=== PATIENT | female | born 1980 | race Caucasian/White ===

== ENCOUNTER 2017-09-20 09:47 | Emergency (ER) | payer OTHER ==
[~2017-09-20] VITALS: Ht 157.5 cm; Wt 95.3 kg
[~2017-09-20 09:47] MED LIST: CLON1 PO; HYDRO50 PO; LAMO100 PO; PRED20 PO
[2017-09-20 10:15] VITALS: BP 143/76; PULSE 94; RESP 16; TEMP 98.8; O2SAT 97
--- NOTE | 2017-09-20 11:00 | PD ---
HPI Chief Complaint: Cold / Flu Symptoms Time Seen by Provider: 10:38 Travel History International Travel<30 days: No Contact w/Intl Traveler<30days: No Traveled to known affect area: No History of Present Illness HPI 36-year-old female that presents to the ED for evaluation of cold like symptoms. Per patient she's had this for about 3 days. Per patient he started with a sore throat. Has been having a lot of cough and congestion. Per patient symptoms appeared to worsen today now she is coughing up green stuff. She states that she feels weak and tired which is also not been sleeping secondary to the symptoms. Denies any sick contacts alert and daughter who started with the same symptoms at the same time. History of asthma. Has inhalers at home. No smoking. No recent travel. No urinary or bowel movement issues. No chest pain or shortness of breath. No wheezing per patient. Per patient main concern is that she's had bronchitis in the past and this feels similar. Multiple allergies to different medications. PFSH Past Medical History Asthma: Yes Respiratory: Yes (asthma) Seizures: Yes ?: Not Tubal Ligation: Yes Past Surgical History Hysterectomy: Yes Neurologic Surgery: Yes (VAGAL NERVE STIMULATOR) Social History Alcohol Use: No Tobacco Use: No Substance Use: No Allergies-Medications (Allergen,Severity, Reaction): Coded Allergies: diatrizoate meglumine (Unverified Allergy, Severe, Anaphylaxis, 09/20/17) gadobenic acid (Unverified Allergy, Severe, Anaphylaxis, 09/20/17) gadodiamide (Unverified Allergy, Severe, Anaphylaxis, 09/20/17) gadoteridol (Unverified Allergy, Severe, Anaphylaxis, 09/20/17) iodixanol (Unverified Allergy, Severe, Anaphylaxis, 09/20/17) iohexol (Unverified Allergy, Severe, Anaphylaxis, 09/20/17) penicillin G (Unverified Allergy, Severe, HIVES, 09/20/17) phenytoin (Unverified Allergy, Severe, HIVES/SOB, 09/20/17) topiramate (Unverified Allergy, Severe, HIVES, 09/20/17) Reported Meds & Prescriptions Reported Meds & Active Scripts Active No Active Prescriptions or Reported Medications Review of Systems Except as stated in HPI: all other systems reviewed are Neg Physical Exam Narrative GENERAL: Well-nourished, well-developed patient in no apparent distress. SKIN: Warm and dry. HEAD: Atraumatic. Normocephalic. EYES: Pupils equal and round reactive to light and accommodation. No scleral icterus. No injection or drainage. ENT: No nasal bleeding or discharge. Mucous membranes pink and moist. TMs are clear with no sign of infection or perforation. No mastoid tenderness. Ear canals are intact bilaterally. No lymphadenopathy. Nostril mucosa is red and moist with clear mucus noted. No sinus tenderness to palpation noted. Tonsils are not enlarged or swollen. No ulvua Deviation. Tongue is midline. NECK: Trachea midline. No JVD. No meningeal signs noted CARDIOVASCULAR: Regular rate and rhythm. RESPIRATORY: No accessory muscle use. Mild wheezing heard with expiration on the lower lung fernandez. Breath sounds equal bilaterally. GASTROINTESTINAL: Abdomen soft, non-tender, nondistended. Hepatic and splenic margins not palpable. MUSCULOSKELETAL: Extremities without clubbing, cyanosis, or edema. No obvious deformities. NEUROLOGICAL: Awake and alert. No obvious cranial nerve deficits. Motor grossly within normal limits. Five out of 5 muscle strength in the arms and legs. Normal speech. PSYCHIATRIC: Appropriate mood and affect; insight and judgment normal. Data Data Last Documented VS Vital Signs Date Time Temp Pulse Resp B/P (MAP) Pulse Ox O2 Delivery O2 Flow Rate FiO2 09/20/17 10:15 98.8 94 16 143/76 (98) 97 Orders Orders Influenzae A/B Antigen (09/20/17 10:41) [facility] Medical Decision Making Medical Screen Exam Complete: Yes Emergency Medical Condition: Yes Medical Record Reviewed: Yes Interpretation(s) influenza negative Differential Diagnosis Bronchitis versus sinusitis versus URI versus influenza Narrative Course 36-year-old female that presents to the ED for evaluation of cold like symptoms. Patient was properly examined and was found to have signs and symptoms consistent with appears to be likely bronchitis. We'll check for flu. Flu negative. Patient was reassured. Patient given a prescription for azithromycin, prednisone, Tessalon Perles. Told to take OTC medicines as needed. Follow with PCP. See ED worsening symptoms. Diagnosis Primary Impression: Acute bronchitis Qualified Codes: J20.9 - Acute bronchitis, unspecified Patient Instructions: General Instructions Departure Forms: Tests/Procedures, Work Release Enter return to work date: Sep 23, 2017 Additional Instructions: Motrin and Tylenol for pain and fever. You can use [id number] antihistamine as well as well as Mucinex as needed for runny nose and congestion. Cough drops for cough as needed. Drink plenty of fluids. Follow-up with PCP. See ED for worsening symptoms. Med/Other Pt SpecificInfo: Prescription(s) given Scripts No Active Prescriptions or Reported Meds Disposition: 01 DISCHARGE HOME Condition: Stable Caleb Santamaria Sep 20, 2017 11:00
[2017-09-20] MEDS ORDERED: BENZ100 PO (11:02)
[2017-09-20] MEDS ORDERED: AZIT250T3 PO (11:02)
[2017-09-20] MEDS ORDERED: PRED20 PO (11:02)
== END 2017-09-20 11:39 | disposition home or self-care (01) ==
LOC: PHED 09:47 → PHEFT 11:39
DX: J20.9 Acute bronchitis, unspecified (principal)
CPT/HCPCS: 87804; 99283

== ENCOUNTER 2017-11-30 19:02 | Emergency (ER) | payer OTHER ==
[~2017-11-30] VITALS: Ht 157.5 cm; Wt 97.7 kg
[~2017-11-30 19:02] MED LIST changes: +AZIT250T3 PO; +BENZ100 PO; -CLON1 PO; -HYDRO50 PO; -LAMO100 PO
[2017-11-30 19:05] VITALS: BP 140/72; PULSE 82; RESP 16; TEMP 98.1; O2SAT 97
--- NOTE | 2017-11-30 19:23 | PD ---
HPI Chief Complaint: Injury Time Seen by Provider: 19:11 Travel History International Travel<30 days: No Contact w/Intl Traveler<30days: No Traveled to known affect area: No History of Present Illness HPI 36-year-old female presents with 1 month history of left knee pain. Patient states she was on a ladder a month ago when she stood on her tippy toes, she felt a pop in her leg. She denies any numbness or tingling down her legs. She reports pain around her knee joint worse on the inferior patellar area. She reports that she has been seen a chiropractor who is performed x-rays and has been giving her treatment with ultrasound. She states that this is not helping. She reports is getting worse. She reports that she does have a referral into an orthopedic doctor. She knows she will likely need an outpatient MRI. PFSH Past Medical History Asthma: Yes Respiratory: Yes Seizures: Yes ?: Not Tubal Ligation: Yes Past Surgical History Hysterectomy: Yes Neurologic Surgery: Yes (VAGAL NERVE STIMULATOR) Social History Alcohol Use: No Tobacco Use: No Substance Use: No Allergies-Medications (Allergen,Severity, Reaction): Coded Allergies: diatrizoate meglumine (Unverified Allergy, Severe, Anaphylaxis, 11/30/17) gadobenic acid (Unverified Allergy, Severe, Anaphylaxis, 11/30/17) gadodiamide (Unverified Allergy, Severe, Anaphylaxis, 11/30/17) gadoteridol (Unverified Allergy, Severe, Anaphylaxis, 11/30/17) iodixanol (Unverified Allergy, Severe, Anaphylaxis, 11/30/17) iohexol (Unverified Allergy, Severe, Anaphylaxis, 11/30/17) penicillin G (Unverified Allergy, Severe, HIVES, 11/30/17) phenytoin (Unverified Allergy, Severe, HIVES/SOB, 11/30/17) topiramate (Unverified Allergy, Severe, HIVES, 11/30/17) Reported Meds & Prescriptions Reported Meds & Active Scripts Active Lorcet (Hydrocodone-Acetaminophen) 5-325 mg Tab 1 Tab PO Q6H PRN 3 Days Arthrotec 75 (Diclofenac-Misoprostol) 75-0.2 Mg Tab 1 Tab PO BID Review of Systems Except as stated in HPI: all other systems reviewed are Neg Musculoskeletal: Positive: Limited ROM, Edema, Pain (Left knee), No: Weakness Neurologic: No: Weakness, Paresthesia, Sensory Disturbance Physical Exam Narrative GENERAL: Well-nourished, well-developed patient. SKIN: Focused skin assessment warm/dry. HEAD: Normocephalic/atraumatic. EYES: No scleral icterus. No injection or drainage. MUSCULOSKELETAL: On examination patient's left knee, there is swelling in the infrapatellar and suprapatellar region. There is no instability on anterior posterior drawer test. There is no medial or lateral instability. There is tender to touch on the medial collateral ligament distribution as well as inferior patellar ligamentous distribution. There is no redness or heat noted. It hurts worse with flexion and extension. Cap refill less than 3 seconds. Normal sensation distal toes. NEUROLOGICAL: Awake and alert. Cranial nerves II through XII intact. Motor and sensory grossly within normal limits. Five out of 5 muscle strength in all muscle groups. Normal speech. Data Data Last Documented VS Vital Signs Date Time Temp Pulse Resp B/P (MAP) Pulse Ox O2 Delivery O2 Flow Rate FiO2 11/30/17 19:05 98.1 82 16 140/72 (94) 97 MDM Medical Decision Making Medical Screen Exam Complete: Yes Emergency Medical Condition: Yes Differential Diagnosis Ligamentous injury of the left knee versus osteoarthritis versus joint effusion. Narrative Course 36-year-old female presents with left knee pain. The patient reports hearing a pop while standing on a ladder 1 month ago. She reports it has not gotten any better. She had recent x-rays by a chiropractor who informed her that there was no bony injury. I have offered her an x-ray however she has declined at this time. We will place her in a knee immobilizer. She will be given a prescription for Arthrotec. She also be given a prescription for Lorcet for 3 days. She instructed to use moist heat and elevate. She will follow-up with the orthopedic surgeon for further evaluation. She is instructed to use the knee immobilizer when she is ambulatory during the day. Diagnosis Primary Impression: Left knee pain Additional Instructions: Moist heat 2-3 times daily 20-30 minutes. Wear knee immobilizer when ambulatory. Return if feeling worse. Follow-up with the orthopedic doctor as planned. Scripts Hydrocodone-Acetaminophen (Lorcet) 5-325 mg Tab 1 TAB PO Q6H Y for PAIN for 3 Days, #12 TAB 0 Refills Prov: Domo Saucedo MD 11/30/17 Diclofenac-Misoprostol (Arthrotec 75) 75-0.2 Mg Tab 1 TAB PO BID for Pain Management, #60 TAB 0 Refills Prov: Domo Saucedo MD 11/30/17 Disposition: 01 DISCHARGE HOME Condition: Stable Domo Saucedo MD November 30, 2017 19:23
[2017-11-30] MEDS ORDERED: ARTHTAB5 PO (19:24)
[2017-11-30] MEDS ORDERED: HYDR-3576 PO (19:24)
== END 2017-11-30 19:45 | disposition home or self-care (01) ==
LOC: PHEFT 19:02
DX: M25.562 Pain in left knee (principal); J45.909 Unspecified asthma, uncomplicated; Z86.69 Personal history of other diseases of the nervous system and sense organs; Z88.0 Allergy status to penicillin; Z88.8 Allergy status to other drugs, medicaments and biological substances
CPT/HCPCS: 99283

== ENCOUNTER 2018-01-08 00:34 | Emergency (ER) | payer OTHER ==
[~2018-01-08] VITALS: Ht 157.5 cm; Wt 97.6 kg
[~2018-01-08 00:34] MED LIST changes: +ARTHTAB5 PO; -AZIT250T3 PO; -BENZ100 PO; +HYDR-3576 PO; -PRED20 PO
[2018-01-08 00:40] VITALS: BP 121/84; PULSE 86; RESP 12; TEMP 97.9; O2SAT 97
[2018-01-08] MEDS ORDERED: ALBUAER3 INH (00:59)
--- NOTE | 2018-01-08 01:11 | PD ---
HPI Chief Complaint: Edema Time Seen by Provider: 01:03 Travel History International Travel<30 days: No Contact w/Intl Traveler<30days: No Traveled to known affect area: No History of Present Illness HPI The patient is a 37-year-old female that complains of swelling to the left leg for approximately 24 hours. She also has some pain in the left leg which is minimal. She has a history of DVT to the left leg 3 years ago and was subsequently taken off of anticoagulants. She denies any pulmonary emboli. She has a history of asthma and has some slight shortness of breath and some slight chest tightness but no pleuritic type chest pain. She denies any hemoptysis or fever. Her pain is a 5/10 and dull pain. PFSH Past Medical History Asthma: Yes Respiratory: Yes Seizures: Yes ?: Not Tubal Ligation: Yes Past Surgical History Hysterectomy: Yes Neurologic Surgery: Yes (VAGAL NERVE STIMULATOR AND REMOVAL) Social History Alcohol Use: No Tobacco Use: No Substance Use: No Allergies-Medications (Allergen,Severity, Reaction): Coded Allergies: diatrizoate meglumine (Verified Allergy, Severe, Anaphylaxis, 01/08/18) gadobenic acid (Verified Allergy, Severe, Anaphylaxis, 01/08/18) gadodiamide (Verified Allergy, Severe, Anaphylaxis, 01/08/18) gadoteridol (Verified Allergy, Severe, Anaphylaxis, 01/08/18) iodixanol (Verified Allergy, Severe, Anaphylaxis, 01/08/18) iohexol (Verified Allergy, Severe, Anaphylaxis, 01/08/18) penicillin G (Verified Allergy, Severe, HIVES, 01/08/18) phenytoin (Verified Allergy, Severe, HIVES/SOB, 01/08/18) topiramate (Verified Allergy, Severe, HIVES, 01/08/18) Reported Meds & Prescriptions Reported Meds & Active Scripts Active Reported Proair Hfa 8.5 GM Inh (Albuterol Sulfate) 90 Mcg/Act Aer 1 Puff INH Q4H PRN 108 mcg/actuation Review of Systems Except as stated in HPI: all other systems reviewed are Neg Physical Exam Narrative GENERAL: The patient is alert, oriented 3 in slight apparent distress with her left leg pain. She is in no respiratory distress. Her vital signs are normal. SKIN: Focused skin assessment warm/dry. HEAD: Atraumatic. Normocephalic. EYES: Pupils equal and round. No scleral icterus. No injection or drainage. ENT: No nasal bleeding or discharge. Mucous membranes pink and moist. NECK: Trachea midline. No JVD. CARDIOVASCULAR: Regular rate and rhythm. No murmur appreciated. RESPIRATORY: No accessory muscle use. Clear to auscultation. Breath sounds equal bilaterally. GASTROINTESTINAL: Abdomen soft, non-tender, nondistended. Hepatic and splenic margins not palpable. MUSCULOSKELETAL: No obvious deformities. No clubbing. No cyanosis. No edema. There is visible swelling in the left leg and Homans sign is positive. There is some slight calf pain tenderness present only in the left leg. NEUROLOGICAL: Awake and alert. No obvious cranial nerve deficits. Motor grossly within normal limits. Normal speech. PSYCHIATRIC: Appropriate mood and affect; insight and judgment normal. Data Data Last Documented VS Vital Signs Date Time Temp Pulse Resp B/P (MAP) Pulse Ox O2 Delivery O2 Flow Rate FiO2 01/08/18 01:02 98 Room Air 01/08/18 00:40 97.9 86 12 121/84 (96) Orders Orders Complete Blood Count With Diff (01/08/18 01:07) Comprehensive Metabolic Panel (01/08/18 01:07) Prothrombin Time / Inr (Pt) (01/08/18 01:07) Act Partial Throm Time (Ptt) (01/08/18 01:07) Urinalysis - C+S If Indicated (01/08/18 01:07) Us Leg Venous Doppler (01/08/18 01:07) MDM Medical Decision Making Medical Screen Exam Complete: Yes Emergency Medical Condition: Yes Medical Record Reviewed: Yes Interpretation(s) The ultrasound is negative for DVT. Differential Diagnosis DVT, cellulitis, fasciitis, left leg pain etiology undetermined Narrative Course The patient has pain and visible swelling in the left lower extremity without any erythema or evidence of cellulitis. This still may represent early DVT and the patient is told that she may need to repeat the ultrasound in a week or 2 if not better. The patient has a pain now 7/10 and will be given prescriptions for ibuprofen and Percocet 5. Diagnosis Primary Impression: Pain and swelling of left lower leg Additional Instructions: As we discussed, follow-up with your primary care physician. If this pain/ swelling is persistent you may need to repeat this ultrasound because it may be simply too early at this time to demonstrate the clot. Do not drink alcohol or drive on the Percocet 7.5. Med/Other Pt SpecificInfo: Prescription(s) given Scripts Ibuprofen (Ibuprofen) 600 Mg Tab 600 MG PO TID, #33 TAB 0 Refills Prov: Kale Comer MD 01/08/18 Oxycodone-Acetaminophen (Percocet) 7.5-325 mg Tab 1 TAB PO Q6H Y for PAIN, #20 TAB 0 Refills Prov: Kale Comer MD 01/08/18 Disposition: 01 DISCHARGE HOME Condition: Stable Kale Comer MD Jan 08, 2018 01:11
--- NOTE | 2018-01-08 02:07 | RADRPT ---
EXAM DATE: 01/08/2018 2:04 AM EDT AGE/SEX: 37 years / Female INDICATIONS: Left leg swelling. CLINICAL DATA: This is the patient's initial encounter. Patient reports that signs and symptoms have been present for 1 day and indicates a pain score of 8/10. MEDICAL/SURGICAL HISTORY: Asthma. Cardiac dvt four years ago. Hysterectomy. Tubal ligation. COMPARISON: No prior exams available for comparison. TECHNIQUE: Venous ultrasound of both lower extremities was performed from the inguinal ligament to t he proximal calf. Real-time, color Doppler and spectral tracing, compression and augmentation techni ques were used. FINDINGS: The lower extremity veins are fully compressible and demonstrated normal venous waveform a nd augmentation response. There are no filling defects. CONCLUSION: 1. Negative exam with no evidence of deep venous thrombosis. Electronically signed by: Luis Armando Koenig MD 01/08/2018 2:06 AM EDT
[2018-01-08] MEDS ORDERED: PERC7.5T13 PO (02:26)
[2018-01-08] MEDS ORDERED: IBUP-232 PO (02:26)
[2018-01-08] MEDS ORDERED: oxyCODONE/ACETAMINOPHEN 7.5 MG/325 MG TAB PO ONE (02:30)
[2018-01-08] MEDS ORDERED: KETOROLAC TROMETHAMINE 60 MG/2 ML (IM) VIAL IVP ONE (02:30)
[2018-01-08 02:32] LABS: AUTOMATED NEUTROPHIL # 5.6 TH/MM3 (1.8-7.7); BASOPHIL # 0.1 TH/MM3 (0-0.2); BASOPHIL % 0.8 % (0.0-2.0); EOSINOPHIL # 0.2 TH/MM3 (0-0.4); EOSINOPHIL % 2.2 % (0.0-4.0); HEMATOCRIT 41.7 % (35.0-46.0); HEMOGLOBIN 13.9 GM/DL (11.6-15.3); LYMPH % 34.4 % (9.0-44.0); LYMPHOCYTE # 3.5 TH/MM3 (1.0-4.8); MEAN CELL VOLUME 89.6 FL (80.0-100.0); MEAN CORPUSCULAR HEMOGLOBIN 29.9 PG (27.0-34.0); MEAN CORPUSCULAR HGB CONC 33.4 % (32.0-36.0); MEAN PLATELET VOLUME 9.9 FL (7.0-11.0); MONO % 7.7 % (0.0-8.0); MONOCYTE # 0.8 TH/MM3 (0-0.9); NEUT % 54.9 % (16.0-70.0); PLATELET COUNT 318 TH/MM3 (150-450); RED BLOOD COUNT 4.66 MIL/MM3 (4.00-5.30); RED CELL DISTRIBUTION WIDTH 13.9 % (11.6-17.2); WHITE BLOOD COUNT 10.2 TH/MM3 (4.0-11.0)
[2018-01-08 02:43] VITALS: BP 125/88; TEMP 98.3
[2018-01-08 02:43] LABS: CHLORIDE 109 MEQ/L (98-107); SODIUM (NA) 143 MEQ/L (136-145)
[2018-01-08 02:46] LABS: BILIRUBIN, URINE NEG (NEG); BLOOD, URINE TRACE (NEG); GLUCOSE,URINE NEG (NEG); KETONE, URINE NEG (NEG); NITRITE,URINE NEG (NEG); PH, URINE 5.5 (5.0-8.5); URINE COLOR YELLOW (YELLW/STRAW); URINE LEUKOCYTE ESTERASE NEG (NEG)
[2018-01-08 02:47] LABS: CALCIUM 8.8 MG/DL (8.5-10.1)
[2018-01-08 02:48] LABS: ALBUMIN 3.6 GM/DL (3.4-5.0); BICARBONATE 27.5 MEQ/L (21.0-32.0); BLOOD UREA NITROGEN 13 MG/DL (7-18); GLUCOSE,RANDOM 65 MG/DL (74-106)
[2018-01-08 02:51] LABS: ALT (GPT) 29 U/L (10-53); AST (GOT) 18 U/L (15-37); CREATININE 0.53 MG/DL (0.50-1.00); GLOMERULAR FILTRATION RATE 128 ML/MIN (>89)
[2018-01-08 02:52] LABS: TOTAL BILIRUBIN ADULT 0.3 MG/DL (0.2-1.0); TOTAL PROTEIN 7.5 GM/DL (6.4-8.2)
[2018-01-08 02:53] LABS: ALKALINE PHOSPHATASE 67 U/L (45-117)
[2018-01-08 02:58] LABS: MUCUS URINE FEW /lpf (OCC)
[2018-01-08 02:59] LABS: RBC, URINE 0-3 /hpf (0-3); SQUAMOUS EPITHELIAL CELL URINE 0-5 /hpf (0-5); WBC, URINE 0-2 /hpf (0-5)
== END 2018-01-08 02:45 | disposition home or self-care (01) ==
LOC: PHED 00:34
DX: M79.662 Pain in left lower leg (principal); M79.89 Other specified soft tissue disorders; J45.909 Unspecified asthma, uncomplicated; Z86.718 Personal history of other venous thrombosis and embolism; Z88.8 Allergy status to other drugs, medicaments and biological substances; Z88.0 Allergy status to penicillin; Z79.899 Other long term (current) drug therapy
CPT/HCPCS: 80053; 81001; 85025; 85610; 85730; 93971; 96374; 99284; J1885